=== PATIENT | male | born 1965 | race Caucasian/White ===

== ENCOUNTER 2020-12-19 12:45 | Outpatient (CLI) | payer OTHER, SELFPAY ==
--- NOTE | 2020-12-19 13:00 | MR_ITS ---
WS: [id number] MRI LUMBAR SPINE NONCONTRAST HISTORY: progressive pain and lower extremity weakness COMPARISON: None available. TECHNIQUE: Sagittal and axial multisequence imaging is submitted. Mild disc space narrowing and desiccation throughout the thoracic spine. There are a few areas of dis c bulging and protrusions most significant at T6-7 without cord contact. Mild straightening of the normal lumbar lordosis. No marrow edema or acute fracture. Minimal disc space narrowing and desiccation at L4-5 and L5-S1. Conus terminates normally at L1-2 disc level. L1-L2: Small LEFT foraminal disc protrusion with annular fissure. No contact on the nerve root. L2-L3: Mild annular disc bulging with mild bilateral foraminal and mild central narrowing. L3-L4: Mild annular disc bulging with mild central and foraminal narrowing. L4-L5: Mild annular disc bulging and mild osteophytic ridging. Small amount of fluid in the facet deneen nts. There is mild central, bilateral subarticular recess and moderate foraminal stenosis. L5-S1: Annular disc bulge with a broad-based central disc protrusion encroaching into the RIGHT later al recess and subarticular recess. Mild central stenosis with moderate bilateral foraminal stenosis. MR/MR lumbar spine wo con* [id number] IMPRESSION: 1. 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 2. Mild central stenosis with moderate bilateral foraminal stenosis at L5-S1 d ue to a central disc protrusion and short pedicles. 3. Mild central with bilateral subarticular recess and moderate foraminal sten osis at L4-5. Stenoses due to short pedicles. 4. Mild central and foraminal narrowing at L2-3 and L3-4.
== END 2020-12-19 12:46 | disposition home or self-care (01) ==
PROVIDERS: PCP Family Medicine; Visit Provider Family Medicine
DX: R53.1 Weakness (principal); M48.07 Spinal stenosis, lumbosacral region; M48.061 Spinal stenosis, lumbar region without neurogenic claudication; M51.27 Other intervertebral disc displacement, lumbosacral region
CPT/HCPCS: 72148

== ENCOUNTER → 2020-12-26 11:40 | Outpatient (BNVA) | payer OTHER, SELFPAY | PROVIDERS: PCP Family Medicine; Referring Provider Family Medicine; Visit Provider Orthopaedic Surgery | DX: M48.061 Spinal stenosis, lumbar region without neurogenic claudication (principal); M51.16 Intervertebral disc disorders with radiculopathy, lumbar region | CPT/HCPCS: 72110 ==